=== PATIENT | female | born 1985 ===

== ENCOUNTER 2025-02-04 10:00 | Day surgery (SDC) | payer OTHER ==
[2025-01-25 08:29] VITALS: BP 128/79
[2025-01-25 09:11] LABS: URINE APPEARANCE Cloudy; URINE BILIRRUBIN Negative (NEGATIVE); URINE BLOOD Negative; URINE COLOR Yellow; URINE GLUCOSE Negative (NEGATIVE); URINE KETONE Negative (NEGATIVE); URINE LEUKOCYTE Negative; URINE NITRATE Negative; URINE PROTEIN Negative (NEGATIVE); URINE UROBILINOGEN 0.2 E.U./dl
[2025-01-25 09:12] LABS: URINE EPITHELIAL CELLS 117.9 uL (0.0-38.8); URINE RBC 55.1 uL (0.0-20.8); URINE WBC 18.3 uL (0.0-23.2)
[2025-01-25 09:15] LABS: BASO % 0.4 % (0.1-1.2); EOS # 0.31 (0.04-0.54); EOS % 2.8 % (0.7-7.0); LYMPH # 2.83 (1.18-3.74); LYMPH % 25.5 % (19.3-53.1); MEAN PLATELET VOLUME 9.20 fl (9.4-12.4); MONO # 0.52 (0.24-0.82); MONO % 4.7 % (4.7-12.5); NEUT # 7.34 (1.56-6.13); NEUT % 66.2 % (34.0-71.1); RED CELL DISTRIBUTION WIDTH 13.6 % (11.6-14.4)
[2025-01-25 09:16] LABS: URINE CAST 0.43 uL (0.0-1.40)
[2025-01-25 09:22] LABS: TYPE CELLS SQUAMOUS
[2025-01-25 09:46] LABS: INR 1.01
[2025-01-25 10:27] LABS: ALT/SGPT 13.0 U/L (12-78); AST/SGOT 8.0 U/L (15-37); BILIRUBIN TOTAL 0.39 mg/dL (0.3-1.2); BUN CREA RATIO 19.0 (7.0-25.0); CREATININE SERUM 0.42 mg/dL (0.55-1.02); GFR 167.1; GLOBULINA 4.2 G/DL (2.4-3.5); GLUCOSE FASTING 85.0 mg/dL (65-100); OSMOLALITY SERUM 273.0 MOSM/KG (275-295)
[~2025-02-04] VITALS: Ht 154.9 cm; Wt 103.4 kg
[~2025-02-04 10:00] MED LIST: BUSPIRONE HCL7.5 MG; EFFEXOR XR37.5 MG; EFFEXOR XR75 MG PO; RESTORIL30 M1 PO
[2025-02-04] MEDS ORDERED: CEFAZOLIN SODIUM 1,000 MG VIAL ONE (10:52)
[2025-02-04] MEDS ORDERED: POVIDONE-IODINE 118 ML BOTT TOP ONE (13:11)
[2025-02-04] MEDS ORDERED: DOXYCYCLINE HY100 MG PO (15:17)
[2025-02-04] MEDS ORDERED: IBU600 MG PO (15:18)
== END 2025-02-04 17:30 | disposition home or self-care (01) ==
LOC: CIR.AMB 10:00
PROVIDERS: ATTEND Obstetrics & Gynecology
DX: D25.0 Submucous leiomyoma of uterus (principal); N80.03 Adenomyosis of the uterus; N95.0 Postmenopausal bleeding; N84.0 Polyp of corpus uteri